=== PATIENT | female | born 1965 | race Caucasian/White ===

== ENCOUNTER → 2016-10-26 16:52 | Outpatient (CLI) | payer BC | END | disposition home or self-care (01) | LOC: D.MAMMO 15:30 | DX: Z12.31 Encounter for screening mammogram for malignant neoplasm of breast (principal) ==

== ENCOUNTER 2017-01-08 07:02 | Outpatient (CLI) | payer BC ==
[~2017-01-08] VITALS: Ht 177.8 cm; Wt 100.0 kg
--- NOTE | ~2017-01-08 | HEMODYNAMI ---
PATIENT:KATHY MENDEZ MEDICAL RECORD: [id number] : 63 LOCATION:[facility] ADMISSION DATE: 01/08/17 Generatedon:01/08/20179:54 Patient name: KATHY MENDEZ Patient #: [id number] SSN: : [birth year] Date of study: 01/08/2017 Page: Of Hemodynamic Procedure Report Patient Data Patient Demographics Procedure consent was obtained First Name: KATHY Gender: Female Last Name: ANDREA : 1965 Middle Initial: M Age: 51 year(s) Patient #: [id number] Race: Additional ID: [id number] Contact details Address: [address] [place] [address] State: [place] City: [place] Zip code: [address] Past Medical History Allergies: No known allergies Admission Admission Data Admission Date: 01/08/2017 Admission Time: 7:02 Height (in.): 70 BSA: 2.17 (m2) Height (cm.): 177.8 BMI: 31.57 (kg/m2) Weight (lbs.): 220 Weight (kg.): 99.79 Lab Results Lab Result Date: 01/08/2017 Lab Result Time: 0:00 Biochemistry Name Units Result Min Max Creatinine mg/dl 0.9 --(-*--)-- 0.6 1.3 CBC Name Units Result Min Max Hemoglobin g/dl 14.5 --(*---)-- 13.5 17.5 Procedure Procedure Types Cath Procedure Diagnostic Procedure LHC LHC w/Coronaries Miscellaneous Procedures Moderate Sedation up to 15 minutes Procedure Description Procedure Date Procedure Date: 01/08/2017 Procedure Start Time: 9:46 Procedure End Time: 9:54 Procedure Staff Name Function Raymon Mcdaniel MD Performing Physician Leonides Saunders RT Scrub Kira Reddy RN Nurse Leah Blevins RT Monitor Procedure Data Cath Procedure Fluoroscopy Diagnostic fluoroscopy Total fluoroscopy Time: 0.8 time: 0.8 min min Diagnostic fluoroscopy Total fluoroscopy dose: dose: 71.19 mGy 71.19 mGy Contrast Material Contrast Material Type Amount (ml) Isovue 300 37 Entry Location Entry Primary Successful Side Size Upsize Upsize Entry Closure Adan ccessful Closure Location (Fr) 1 (Fr) 2 (Fr) Remarks Device Remarks Radial Right 6 Fr Mechanical artery Short Compression Estimated blood loss: 5 ml Diagnostic catheters Device Type Used For End Catheter Placement Diagnostic Terumo 5Fr LV Angiography [place] 110cm catheter Diagnostic Terumo 5Fr Left Coronary [place] 110cm catheter Angiography Diagnostic Terumo 5Fr Right Coronary [place] 110cm catheter Angiography Procedure Complications No complications Procedure Medications Medication Administration Route Dosage Oxygen NC 2 l/min Heparin Flush Bag added to field 2 bags (1000units/500ml NS) Lidocaine 2% added to field 20 Radial Cocktail added to field 1 syringe (Verapomil 2mg/Nitro 400mcg/Heparin 1500units) Fentanyl I.V. 50 mcg Versed I.V. 1 mg Fentanyl I.V. 50 mcg Versed I.V. 1 mg Radial Cocktail I.A. 1 syringe (Verapomil 2mg/Nitro 400mcg/Heparin 1500units) Versed I.V. 0.5 mg Hemodynamics Rest BSA: 2.17 (m2) HGB: 14.5 (g/dl) O2 Consumption: Estimated: 222.84 (ml/min) O2 Co nsumption indexed: Estimated:102.69 (ml/min/m) Heart Rate: 84 (bpm) Snapshots Pre Cath Intra NCS Post Cath Vital Signs Time Heart Resp SPO2 NIBP (mmHg) Rhythm Pain Sedation Rate (ipm) (%) Status Level (bpm) 9:13:43 94 16 97 155/103(138) NSR 0 (11) 10(A) , No pain 9:18:15 88 18 98 168/110(141) NSR 0 (11) 10(A) , No pain 9:22:54 81 16 98 162/106(129) NSR 0 (11) 10(A) , No pain 9:27:28 81 18 99 157/95(128) NSR 0 (11) 10(A) , No pain 9:32:01 76 20 97 158/92(126) NSR 0 (11) 10(A) , No pain 9:36:31 78 17 99 159/93(124) NSR 0 (11) 10(A) , No pain 9:41:04 81 18 99 154/104(119) NSR 0 (11) 10(A) , No pain 9:45:30 72 16 96 145/86(119) NSR 0 (11) 9(A) , No pain 9:49:58 90 16 94 139/88(119) NSR 0 (11) 9(A) , No pain 9:54:24 80 16 92 137/87(118) NSR 0 (11) 9(A) , No pain Medications Time Medication Route Dose Verified Delivered Reason Notes E ffectiveness by by 9:16:07 Oxygen NC 2 l/min Kira Ikra used for Reddy Reddy air intercept controller supervisor RN 9:16:14 Heparin Flush added 2 bags Kira Kira used for Bag to Reddy Reddy procedure (1000units/500ml field RN RN NS) 9:16:25 Lidocaine 2% added 20ml Kira Kira used for to vial Reddy Reddy procedure RN RN 9:16:32 Radial Cocktail added 1 Kira Kira used for (Verapomil to syringe Reddy Reddy procedure 2mg/Nitro field ANTONIO RN 400mcg/Heparin 1500units) 9:41:43 Fentanyl I.V. 50 mcg Kira Kira for sedation Barry Reddy RN RN 9:41:49 Versed I.V. 1 mg Kira Kira for sedation Barry Reddy RN RN 9:46:22 Fentanyl I.V. 50 mcg Kira Kira for sedation Barry Reddy RN RN 9:46:25 Versed I.V. 1 mg Kira Kira for sedation Barry Reddy RN RN 9:47:21 Radial Cocktail I.A. 1 Kira Raymon for (Verapomil syringe Reddy Jonas lazcano 2mg/Nitro RN 400mcg/Heparin 1500units) 9:47:27 Versed I.V. 0.5 mg Kira Kira for sedation Barry Reddy RN optical scientist Log Time Note 8:57:33 Kira Reddy RN sent for patient. Start room use. 8:57:33 Time tracking: Regular hours 8:57:37 Plan of Care:Hemodynamics will remain stable., Cardiac rhythm will remain stable., Comfort level will be maintained., Respiratory function will remain adequate., Patient/ family verbilizes understanding of procedure., Procedure tolerated without complication., Recovers from procedure without complications.. 9:04:10 Patient received from Pre/Post Procedure Room to CCL 3 Alert and oriented. Tansferred to table in Supine position. 9:04:12 Warm blankets applied, and faustino hugger turned on for patient comfort. 9:04:12 Correct patient and procedure confirmed by team. 9:04:13 Signed procedure consent form obtained from patient. 9:04:14 ECG and BP/O2 sat monitors applied to patient. 9:04:15 Full Disclosure recording started 9:12:11 Vital chart was started 9:12:14 Rhythm: sinus rhythm 9:12:35 H&P Date Dictated: 01/08/2017 New H&P dictated by physician.. 9:12:37 Pre-procedure instructions explained to patient. 9:12:37 Pre-op teaching completed and patient verbalized understanding. 9:12:38 Family in waiting room. 9:12:40 Patient NPO since Midnight. 9:12:47 Patient allergic to No known allergies 9:12:49 Is the patient allergic to Iodine/contrast media? No. 9:12:51 Is patient on blood thinner?Yes 9:12:53 ACC The patient was administered the following blood thiners within the last 24 hours: ACCAspirin, ACCPlavix 9:12:56 Patient diabetic? No. 9:12:59 Previous problem with sedation/anesthesia? No ? 9:12:59 Snore? Yes 9:13:00 Sleep apnea? No 9:13:01 Deviated septum? No 9:13:02 Opens mouth fully? Yes 9:13:02 Sticks out tongue? Yes 9:13:19 Airway obstruction? Yes Emphasema 9:13:24 Dentures? Yes Partila in 9:13:26 Pre procedure: right dorsailis pedis pulse 2+ Normal; easily identifiable; not easily obliterated 9:13:28 Modified Kevin's test Ulnar < 7 seconds 9:13:29 Patient pain scale 0/10 ?. 9:13:39 IV patent on arrival in left hand with 0.9% NaCl at O. 9:14:05 Lab Result : Creatinine 0.9 mg/dl 9:14:05 Lab Result : Hemoglobin 14.5 g/dl 9:14:08 Lab results completed and on chart. 9:14:14 Right Radial & Right Groin area was prepped with chlora-prep and draped in sterile fashion 9:14:14 Alarms reviewed by R. N. 9:14:15 Sharps counted by scrub and verified by R.N. 9:14:17 Use device set Radial Dx 9:14:18 Acist Syringe opened to sterile field. 9:14:19 Medline Cath Pack opened to sterile field. 9:14:20 Bag Decanter opened to sterile field. 9:14:20 Terumo 6Fr Slender Glidesheath opened to sterile field. 9:14:21 St Luther 260cm J .035 wire opened to sterile field. 9:14:21 Acist Hand Control opened to sterile field. 9:14:21 Acist Manifold opened to sterile field. 9:14:22 Tegaderm 4 x 4 opened to sterile field. 9:16:07 Oxygen 2 l/min NC was administered by Kira Reddy RN; used for procedure; 9:16:14 Heparin Flush Bag (1000units/500ml NS) 2 bags added to field was administered by Kira Reddy RN; used for procedure; 9:16:25 Lidocaine 2% 20ml vial added to field was administered by Kira Reddy RN; used for procedure; 9:16:32 Radial Cocktail (Verapomil 2mg/Nitro 400mcg/Heparin 1500units) 1 syringe added to field was administered by Kira Reddy RN; used for procedure; 9:19:20 Baseline sample Acquired. 9:27:12 Zero performed for pressure channel P1 9:27:32 Zero performed for pressure channel P1 9:37:59 Patient Height : 177.8 cm 9:38:09 Patient Weight : 99.79 kg 9:41:17 Final Timeout: patient, procedure, and site verified with staff and physician. All members of the team are in agreement. 9:41:20 Right Radial site verified by team. 9:41:23 Physical assessment completed. ASA score P 2 - A patient with mild systemic disease as per Raymon Mcdaniel MD. 9:41:27 Sedation plan: IV Moderate Sedation Versed, Fentanyl 9:41:43 Fentanyl 50 mcg I.V. was administered by Kira Reddy RN; for sedation; 9:41:49 Versed 1 mg I.V. was administered by Kira Reddy RN; for sedation; 9:46:00 Procedure started. 9:46:05 Local anesthetic to right radial artery with Lidocaine 2% by Raymon Mcdaniel MD.INITIAL ACCESS ONLY 9:46:22 Fentanyl 50 mcg I.V. was administered by Kira Reddy RN; for sedation; 9:46:25 Versed 1 mg I.V. was administered by Kira Reddy RN; for sedation; 9:46:45 A 6 Fr Short sheath was inserted into the Right Radial artery 9:47:21 Radial Cocktail (Verapomil 2mg/Nitro 400mcg/Heparin 1500units) 1 syringe I.A. was administered by Raymon Mcdaniel MD; for vasodilation; 9:47:27 Versed 0.5 mg I.V. was administered by Kira Reddy RN; for sedation; 9:47:46 A Diagnostic Terumo 5Fr [place] 110cm catheter was advanced over the wire and used for LV Angiography. 9:47:59 LV gram done using MORA 9:48:02 Injector settings: Ml/sec: 5, Volume: 15, 9:48:13 A Diagnostic Terumo 5Fr [place] 110cm catheter was advanced over the wire and used for Left Coronary Angiography. 9:48:57 A Diagnostic Terumo 5Fr [place] 110cm catheter was advanced over the wire and used for Right Coronary Angiography. 9:49:08 Catheter removed. 9:49:21 Sheath removed intact; hemostasis achieved with Mechanical Compression to the Right Radial artery. 9:49:27 Terumo TR Band Standard opened to sterile field. 9:49:35 Procedure ended.(Physican Out) 9:49:46 Fluoroscopy time 00.80 minutes. 9:49:50 Fluoroscopy dose: 71.19 mGy 9:49:50 Flurop Dose total: 71.19 9:49:53 Contrast amount:Isovue 300 37ml. 9:49:54 Sharps counted by scrub and verified by R.N. 9:49:57 TR band inflated with 12cc of air. 9:49:58 Insertion/operative site no bleeding no hematoma. 9:50:03 Post right radial artery:stable, clean and dry 9:50:04 Post Procedure Pulses reassessed and unchanged 9:50:12 Post-procedure physical assessment completed. ASA score P 2 - A patient with mild systemic disease as per Raymon Mcdaniel MD. 9:50:14 Post procedure rhythm: unchanged. 9:50:17 Estimated blood loss: 5 ml 9:50:19 Post procedure instruction explained to patient.Patient verbalizes understanding. 9:50:19 Patient needs reinforcement of post procedure teaching. 9:50:36 Procedure type changed to Cath procedure, Diagnostic procedure, LHC, LHC w/Coronaries, Miscellaneous Procedures, Moderate Sedation up to 15 minutes 9:50:41 Procedure Complication : No complications 9:50:43 See physician's report for complete and final results. 9:53:34 Procedure and supply charges have been captured, reviewed, submitted and are correct. 9:53:36 Vital chart was stopped 9:53:38 Report given to Pre/Post Procedure Room. 9:53:41 Patient transfered to Pre/Post Procedure Room with Stretcher. 9:54:34 Procedure ended. 9:54:34 Full Disclosure recording stopped 9:54:38 End room use (Document Last) Device Usage Item Name Manufacture Quantity Catalog Hospital Part Current Minimal Lot# / Number Charge Number Stock Stock Serial# Code Acist Acist 1 25840 [id number] 237109 [id number] 20 Syringe [employer] Medline Cardinal 1 [id number] 34008 [id number] 5 Cath Pack Health Bag Microtek 1 2001S 477991 07153 903304 5 [employer] Terumo 6Fr Terumo 1 [id number] 916344 883061 361487 [address] [facility] [employer] Luther 1 801130 423437 651196 058032 30 260cm J .035 wire Acist Hand Acist 1 93877 655991 558704 518680 5 Control [employer] Inc Acist Acist 1 84389 216413 225753 094733 5 Manifold [employer] Inc Tegaderm 4 3M 1 [id number] 151346 579339 383494 5 x 4 Diagnostic Terumo 1 40-7392 675711 260338 749765 5 Terumo 5Fr [place] 110cm catheter Terumo TR Terumo 1 [id number] 235684 285771 473477 40 Band Standard Signature Audit [place] Stage Time Signature Unsigned Intra-Procedure 01/08/2017 Leah 9:54:51 AM Counts RT(R) Signatures Monitor : Leah Signature : Counts RT Date : Time : [facility] [address] [place] [address]
[2017-01-08] MEDS ORDERED: PLAVIX75 MG PO (07:23)
[2017-01-08] MEDS ORDERED: VITAMIN B-12500 MC1 PO (07:24)
[2017-01-08] MEDS ORDERED: UNISOM SLEEP AI25 MG PO (07:24)
[2017-01-08] MEDS ORDERED: BAYER CHEWABLE81 MG PO (07:24)
[2017-01-08] MEDS ORDERED: ZOCOR20 MG PO (07:24)
[2017-01-08] MEDS ORDERED: IRON PO (07:25)
[2017-01-08] MEDS ORDERED: VITAMIN D31000 UNIT PO (07:25)
[2017-01-08 07:26] VITALS: BP 158/97; Ht 177.8 cm; Wt 100.0 kg
[2017-01-08] MEDS ORDERED: VITAMIN E400 UNI2 PO (07:26)
[2017-01-08 07:41] LABS: BASOPHILS 0.7 % (0-2); HEMATOCRIT 41.8 % (36.0-48.0); HEMOGLOBIN 14.5 g/dL (12-16); IMMATURE GRANULOCYTES 0.4 % (0-5); LYMPHOCYTES 19.1 % (15-50); MCH 31.9 pg (26.0-34.0); MCHC 34.7 g/dL (31.0-37.0); MCV 91.9 fL (80.0-100.0); MEAN PLATELET VOLUME 9.9 fL (7.4-10.4); MONOCYTES 7.8 % (2-11); PLATELET COUNT 352 10x3/uL (130-400); RBC 4.55 10x6/uL (4.00-5.40); RDW 11.9 % (11.5-14.5); WBC 11.1 10x3/uL (4.8-10.8)
[2017-01-08 07:49] LABS: ANION GAP 15.6 mmol/L (8-16); CALCIUM 9.3 mg/dL (8.5-10.1); CARBON DIOXIDE 23.3 mmol/L (21.0-32.0); CREATININE - SERUM 0.9 mg/dL (0.6-1.3); POTASSIUM - SERUM 3.9 mmol/L (3.5-5.1)
--- NOTE | 2017-01-08 10:25 | NUR ---
PATIENT SITTING WITH HOB UP 30 DEGREES VSS WITH CHEST PAIN DENTIED. TR BAND TO R/WRIST CDI NO BLEEDING NO HEMATOMA NOTED. INSTRUCTED PATIENT TO KEEP RUE STRAIGHT NO BENDING OR FLEXING OF WRIST. FAMILY AT SIDE
--- NOTE | 2017-01-08 10:50 | NUR ---
RESTING QUIETLY WITH EYES CLOSED NO DISTRESS NOTED. VSS WITH TR BAND TO R/WRIST CDI NO BLEEDING NO HEMATOMA NOTED. AT SIDE
--- NOTE | 2017-01-08 11:14 | NUR ---
2 CC AIR REMOVED FROM TR BAND WITH NO BLEEDING NOTED. CHEST PAIN IS DENIED
--- NOTE | 2017-01-08 11:30 | NUR ---
1130 2 CC AIR REMOVED FROM TR BAND WITH NO BLEEDING NO HEMATOMA NOTED 1145 2 CC AIR REMOVED FROM TR BAND WITH NO BLEEDING NO HEMATOMA NOTED
--- NOTE | 2017-01-08 11:45 | NUR ---
1145 PIV REMOVED WITH DRESSING APPLIED. 2 CC AIR REMOVED FROM TR BAND WITH NO BLEEDING NOTED.PATIENT UP TO GET DRESSED FOR DISCHARGE HOME 1200 TR BAND REMOVED WITH NO BLEEDING NO HEMATOMA NOTED CHEST PAIN IS DENIED. VERBAL AND WRITTEN DISCHARGE GONE OVER WITH PATIENT AND . LEFT VIA WC TO PARKING FOR TRANSPORT HOME
--- NOTE | 2017-01-11 10:11 | HP ---
PATIENT: KATHY MENDEZ MEDICAL RECORD: [id number] ACCOUNT: [id number] LOCATION:ED : 63 ADMISSION DATE: 01/08/17 HISTORY AND PHYSICAL EXAMINATION DIAGNOSES: 1. Angina. 2. Abnormal nuclear stress test, anterior ischemia. 3. Family history of coronary artery disease. HISTORY OF PRESENT ILLNESS: Ms. Mendez has no previous cardiac history. She began having chest pain, chest discomfort compatible with angina. She underwent risk stratification with stress testing revealing anteroapical defect, now she is brought for cardiac catheterization. REVIEW OF SYSTEMS: The patient reports easy bruising but reports no swollen glands. The patient reports no fever, no night sweats, no significant weight gain, no significant weight loss. No significant exercise tolerance. The patient reports no dry eyes, no irritation, no vision change. Patient reports no difficulty hearing and no ear pain. Patient reports no frequent nose bleeds or nose and sinus problems. Patient reports on arm pain on exertion. No shortness of breath while lying down. No history of heart murmur. Patient reports no cough, no wheezing or coughing up blood. Patient reports no abdominal pain, no vomiting. Normal appetite. No diarrhea and not vomiting blood. No nausea and no constipation. Patient reports no incontinence. No difficulty urinating. No hematuria. No increased frequency. Patient reports no muscle aches. No weakness, no arthralgias, no back pain. No swelling of the extremities. Patient reports no abnormal mole, no jaundice, no rashes. Reports no loss of consciousness. No weakness and no numbness. No seizures, dizziness, or headaches. The patient reports no depression, no sleep disturbance, feeling safe in a relationship and no alcohol abuse. Patient reports on fatigue. Reports no runny nose or sinus pressure. No itching, no hives, and no frequent sneezing. PHYSICAL EXAMINATION: GENERAL APPEARANCE: Well-nourished, well-developed, appears stated age. Level of distress, comfortable. PSYCHIATRIC: Mental status, alert, normal affect. Orientation, oriented to time, place and person. EYES: Lids and conjunctiva, noninjected. No discharge, no pallor. ENT: Lips, teeth, gums, normal dentition. Oropharynx, no cyanosis, no pallor. NECK: Carotid arteries, bilateral normal upstroke, no bruits, no thrills. JUGULAR VEINS: No jugular venous pressure or distention. CERVICAL LYMPH NODES: Nontender, nonenlarged. THYROID: Not enlarged. Nontender. No nodules. LUNGS: Respiratory effort, unlabored. CHEST: Normal curvature. No thoracic deformity. No chest wall tenderness. Percussion, resonant. Auscultation, clear. No wheezes, no rales, no rhonchi. CARDIOVASCULAR: Precordial exam, nondisplaced. No heaves or pericardial thrills. Rate and rhythm, regular. Heart sounds, normal S1, normal S2. No S3, no gallop, no rub. Systolic murmur, not heard. Diastolic murmur, not heard. EXTREMITIES: No cyanosis, no edema. Peripheral pulses, full and equal in all extremities, except as noted. No bruits appreciated. ABDOMEN: Soft, nondistended. Normal aorta. No bruit. Nontender. No masses. Liver, nontender, no hepatomegaly. Spleen, nontender, no splenomegaly. HISTORY AND PHYSICAL [id number] KATHY MENDEZ MUSCULOSKELETAL: No joint tenderness. No joint swelling. No erythema. NEUROLOGICAL: Normal gait, normal strength, normal tone. SKIN: Warm and dry. OVERALL IMPRESSION: Anginal symptomatology with abnormal nuclear stress test. She has a high likelihood of hemodynamically significant coronary artery disease. We will proceed with coronary angiography. Further care depends upon findings of the angiography. TRANSINT:[id number] Voice Confirmation ID: [id number] DOCUMENT ID: [id number] EUGENIO POND MD at 1011 CC: [id number] DICTATION DATE: 01/08/17 0840 PATIENT CARE COORDINATOR: 01/08/17 1034 [facility] CLI 01/08/17 [place] [id number]
--- NOTE | 2017-01-11 10:11 | OP ---
PATIENT NAME: KATHY MENDEZ MEDICAL RECORD: [id number] :63 LOCATION:D.CAT ADMISSION DATE: SURGEON: EUGENIO POND MD DATE OF OPERATION: 01/08/2017 PROCEDURES: 1. Left heart catheterization. 2. Selective coronary angiography. 3. Left ventriculogram. INDICATION: Chest pain compatible with angina. PROCEDURE IN DETAIL: After informed consent was obtained and after a detailed explanation of risks, benefits as well as alternative therapies, the patient elected to proceed with angiogram and heart catheterization. The right radial area was prepped and draped in normal sterile fashion. The right radial artery was cannulated via modified Seldinger technique with placement of 5-Welsh sheath. All catheters exchanged through this sheath. FINDINGS: The left ventriculogram was performed in the standard 30-degree MORA view reveals good cardiac wall motion throughout all segments. Overall ejection fraction estimated at 60%. SELECTIVE ANGIOGRAPHY: Left main, left anterior descending, left circumflex, right coronary artery are all smooth-walled vessels with no angiographic evidence of coronary artery disease. OVERALL IMPRESSION: 1. No angiographic evidence of coronary artery disease. 2. Normal left heart pressures. 3. Normal left ventricular systolic function. Chest pain is noncardiac in etiology. No further cardiac workup needs to be ascertained. TRANSINT:[id number] Voice Confirmation ID: [id number] DOCUMENT ID: [id number] EUGENIO POND MD at 1011 CC: [id number] DICTATION DATE: 01/08/17 0952 INSPECTOR GOVERNMENT PROPERTY: 01/08/172004 [facility] CLI 01/08/[address] [address]
== END 2017-01-08 12:00 ==
LOC: D.CATH 07:02
PROVIDERS: Internal Medicine Interventional Cardiology
DX: R07.89 Other chest pain (principal); R94.39 Abnormal result of other cardiovascular function study; Z82.49 Family history of ischemic heart disease and other diseases of the circulatory system; Z01.812 Encounter for preprocedural laboratory examination

== ENCOUNTER → 2017-11-02 18:26 | Outpatient (CLI) | payer BC ==
[2017-01-08 07:26] VITALS: BMI 31.6
[~2017-11-02 18:26] MED LIST: BAYER CHEWABLE81 MG PO; IRON PO; PLAVIX75 MG PO; UNISOM SLEEP AI25 MG PO; VITAMIN B-12500 MC1 PO; VITAMIN D31000 UNIT PO; VITAMIN E400 UNI2 PO; ZOCOR20 MG PO
== END | disposition home or self-care (01) ==
LOC: D.MAMMO 10-28 11:00
DX: Z12.31 Encounter for screening mammogram for malignant neoplasm of breast (principal)

== ENCOUNTER 2018-11-07 08:00 | Outpatient (CLI) | payer BC ==
[2017-01-08 07:26] VITALS: BMI 31.6
== END 2018-11-07 09:00 | disposition home or self-care (01) ==
LOC: D.MAMMO 08:00
PROVIDERS: ATTEND Family Medicine
DX: Z12.31 Encounter for screening mammogram for malignant neoplasm of breast (principal)

== ENCOUNTER 2020-10-24 18:27 | Outpatient (CLI) | payer BC ==
[2017-01-08 07:26] VITALS: BMI 31.6
== END 2020-10-24 23:59 | disposition home or self-care (01) ==
LOC: D.MAMMO 18:27
PROVIDERS: ATTEND Emergency Medicine
DX: G43.711 Chronic migraine without aura, intractable, with status migrainosus (principal)